=== PATIENT | female | born 1995 | race Two or more races ===

== ENCOUNTER → 2019-11-23 | Emergency (ER) | payer OTHER ==
[~2019-11-23] VITALS: Ht 167.6 cm; Wt 72.6 kg
[~2019-11-23] MED LIST: ETOMIDATE (2MG/ML) 20ML VIAL IV ONE; HYDROmorphone HCL 2 MG/ML VL IV ONE; KETOROLAC TROMETH 15 mg/ml 1ML VL IV ONE; KETOROLAC TROMETH 60MG/2ML VIAL IM ONE; LORazepam 2MG/ML-1ML VIAL IV ONE; LORazepam 2MG/ML-1ML VIAL ONE; MORPHINE SULF INJ 2 MG/ML SYRINGE 1ML IM ONE; MORPHINE SULF INJ 2 MG/ML SYRINGE 1ML IV ONE; MORPHINE SULFATE 4 MG/ML SYR/VIAL IV ONE; ONDANSETRON ODT 4 MG TAB PO ONE; methylPREDNISolone SOD SUCC 125 MG/2 ML VL IM ONE; methylPREDNISolone SOD SUCC 125 MG/2 ML VL IV ONE
[2019-11-23 23:16] VITALS: BP 120/66
== END | disposition home or self-care (01) ==
LOC: ER 18:48
DX: S93.05XA Dislocation of left ankle joint, initial encounter (principal); W19.XXXA Unspecified fall, initial encounter; Y93.66 Activity, soccer; Y99.8 Other external cause status; Y92.89 Other specified places as the place of occurrence of the external cause
CPT/HCPCS: 27840; 73600; 73610; 96374; 96375; 96376; 99152; 99285; J1170; J1885; J2060; J2270; J2930; J7030; Q0162